=== PATIENT | female | born 1980 | race African-American/Black ===

== ENCOUNTER 2017-02-22 16:16 | Emergency (ER) | payer OTHER ==
[~2017-02-22] VITALS: Ht 152.4 cm; Wt 61.2 kg
[~2017-02-22 16:16] MED LIST: BACTRIM DS TAB1 EACH PO
== END 2017-02-22 16:45 | disposition home or self-care (01) ==
LOC: ER 16:16
DX: Z48.01 Encounter for change or removal of surgical wound dressing (principal); F17.210 Nicotine dependence, cigarettes, uncomplicated; Z88.6 Allergy status to analgesic agent

== ENCOUNTER 2017-10-19 18:54 | Emergency (ER) | payer OTHER ==
[~2017-10-19] VITALS: Ht 152.4 cm; Wt 65.8 kg
[2017-10-19 18:57] VITALS: BP 130/80
[2017-10-19] MEDS ORDERED: TRAMADOL 50 MG50 MG PO (19:40)
[2017-10-19] MEDS ORDERED: BACTRIM DS TAB1 EACH PO (19:40)
== END 2017-10-19 19:53 | disposition home or self-care (01) ==
LOC: ER 18:54
DX: N76.0 Acute vaginitis (principal); F17.210 Nicotine dependence, cigarettes, uncomplicated; Z88.6 Allergy status to analgesic agent

== ENCOUNTER 2018-09-15 07:41 | Emergency (ER) | payer OTHER ==
[~2018-09-15] VITALS: Ht 157.5 cm; Wt 65.8 kg
[~2018-09-15 07:41] MED LIST changes: +MOBIC7.5 MG PO; +TRAMADOL 50 MG50 MG PO; +ULTRAM 50MG TAB50 MG PO
[2018-09-15] MEDS ORDERED: KEFLEX500 M1 PO (08:00)
[2018-09-15] MEDS ORDERED: ULTRAM 50MG TAB50 MG PO (08:00)
== END 2018-09-15 08:13 | disposition home or self-care (01) ==
LOC: ER 07:41
DX: L03.012 Cellulitis of left finger (principal); F17.210 Nicotine dependence, cigarettes, uncomplicated; Z88.6 Allergy status to analgesic agent